=== PATIENT | male | born 1940 | race Caucasian/White ===

== ENCOUNTER 2016-09-11 06:04 | Observation (INO) | payer MEDICARE, BC ==
[2016-09-11] VITALS (18 sets, daily range): BP systolic 118–173; BP diastolic 40–104; PULSE 69–104; TEMP 97.4–99.5
[~2016-09-11] VITALS: Ht 177.8 cm; Wt 126.2 kg
[~2016-09-11 06:04] MED LIST: ASPI325T6 PO; FERROUS SU325 MG/TAB PO; FOLIC ACID 40400 MCG PO; NORCO 325 MG-7.1 TAB PO; ULTRAM 50MG TAB50 MG PO; VITAMIN C BUFF500 MG PO
[2016-09-11] MEDS ORDERED: NORVASC 5MG5 MG/TAB PO (06:52)
[2016-09-11] MEDS ORDERED: PRINIVIL10 MG PO (06:53)
[2016-09-11] MEDS ORDERED: ASPIRIN E.C. 8181 MG PO (06:53)
[2016-09-12 02:06] VITALS: BP 107/58; PULSE 75; TEMP 98.8
[2016-09-12 05:16] VITALS: BP 131/73; PULSE 70; TEMP 98.7
[2016-09-12 09:32] VITALS: BP 131/91; PULSE 81; TEMP 97.8
[2016-09-12] MEDS ORDERED: PYRIDIUM 100MG100 MG PO (14:53)
[2016-09-12] MEDS ORDERED: CORDARONE200 MG/TAB PO (14:53)
[2016-09-12] MEDS ORDERED: NORCO 325 MG-51 TAB PO (14:54)
[2016-09-12] MEDS ORDERED: SENOKOT S 50 MG1 TAB PO (14:55)
== END 2016-09-12 15:35 | disposition home or self-care (01) ==
LOC: SDCO 06:04 → SURG 09:06 → SDCO 10:04 → SURG 09-12 15:35 → SDCO 09-12 15:35 → SURG 09-12 15:35
DX: C67.8 Malignant neoplasm of overlapping sites of bladder (principal); I48.92 Unspecified atrial flutter; N13.4 Hydroureter; I10 Essential (primary) hypertension; I35.8 Other nonrheumatic aortic valve disorders; J06.9 Acute upper respiratory infection, unspecified; F17.210 Nicotine dependence, cigarettes, uncomplicated; M17.10 Unilateral primary osteoarthritis, unspecified knee; Z96.659 Presence of unspecified artificial knee joint; Z68.38 Body mass index [BMI] 38.0-38.9, adult; J44.9 Chronic obstructive pulmonary disease, unspecified; G47.33 Obstructive sleep apnea (adult) (pediatric)
CPT/HCPCS: OP; C1769; C2617; G9654; J0690; J2270; J2405; J2704; J2765; J3010; J7120; Q9967